=== PATIENT | male | born 1965 | race Caucasian/White ===

== ENCOUNTER 2018-03-04 11:55 | Emergency (ER) | payer BC ==
--- NOTE | 2018-03-04 13:02 | ER Document Report ---
HPI - HPI Patient complains to provider of: bat hit back of head Onset: Just prior to arrival Onset/Duration: Sudden Pain Level: 3 Context: 52 yo male hit in right back of head with bat during softball game prior to arrival. Has soreness to his head and some headache. His is concerned because they have to drive back to [place]. No nausea vomiting loss of consciousness dizziness or vertigo. No neck pain. Associated Symptoms: None - CONSTITUTIONAL Constitutional: DENIES: Fever, Chills Past Medical History - General Information source: Patient - Social History Smoking Status: Never Smoker Chew tobacco use (# tins/day): No Frequency of alcohol use: None Drug Abuse: None Lives with: Spouse/Significant other Family History: Reviewed & Not Pertinent Patient has suicidal ideation: No Patient has homicidal ideation: No - Medical History Medical History: Negative Renal/ Medical History: Denies: Hx Peritoneal Dialysis Surgical Hx: Negative Vertical Provider Document - CONSTITUTIONAL Agree With Documented VS: Yes Exam Limitations: No Limitations General Appearance: No Apparent Distress - INFECTION CONTROL TRAVEL OUTSIDE OF THE [place] IN LAST 30 DAYS: No - HEENT HEENT: Atraumatic, PERRLA Notes: No rhinorrhea, castro sign, or periorbital ecchymosis. EOMs intact - NECK Neck: Supple - Nontender C-spine - RESPIRATORY Respiratory: Breath Sounds Normal, No Respiratory Distress - CARDIOVASCULAR Cardiovascular: Regular Rate, Regular Rhythm - NEURO Level of Consciousness: Awake, Alert, Appropriate Motor/Sensory: No Motor Deficit, No Sensory Deficit Notes: Gait is stable. Course - Re-evaluation Re-evalutation: 03/04/18 14:[address] is negative I will treat with Tylenol. I did discuss the risks CT scan of the head because his exam was normal. But they were very concerned and wanted the CT scan. - Vital Signs Vital signs: Temp Pulse Resp BP Pulse Ox 98.8 F 70 20 150/97 H 95 03/04/18 12:11 03/04/18 12:11 03/04/18 12:11 03/04/18 12:11 03/04/18 12:11 Discharge - Discharge Clinical Impression: Right posterior occipital head injury Condition: Good Disposition: HOME, SELF-CARE Instructions: Contusion ([facility]), Headache ([facility]), Head Injury Precautions ([facility]) Additional Instructions: If you develop any worsening symptoms of headache, nausea, vomiting, dizziness, numbness or any concerns seek medical care before he arrived home to [place] Head injury precautions are for 24 hours after the original head injury See her primary care provider tomorrow for recheck Tylenol up to 4000 mg a day for discomfort Copy of CT scan given to you
--- NOTE | 2018-03-04 14:07 | RADIOLOGY REPORT (SQ) ---
EXAM DESCRIPTION: CT HEAD WITHOUT COMPLETED DATE/TIME: 03/04/2018 1:42 pm REASON FOR STUDY: post occiput injury COMPARISON: None. TECHNIQUE: Axial images acquired through the brain without intravenous contrast. Images reviewed wi th bone, brain and subdural windows. Additional sagittal and coronal reconstructions were generated. Images stored on PACS. All CT scanners at this facility use dose modulation, iterative reconstruction, and/or weight based d osing when appropriate to reduce radiation dose to as low as reasonably achievable (ALARA). [facility]: Dose Right [facility]: CareDose [facility]: Dose Right [facility]: Teradose 4D [facility]: [employer] RADIATION DOSE: CT Rad equipment meets quality standard of care and radiation dose reduction techniq ues were employed. CTDIvol: 53.2 mGy. DLP: 1070 mGy-cm. mGy. LIMITATIONS: None. FINDINGS: VENTRICLES: Normal size and contour. CEREBRUM: No masses. No hemorrhage. No midline shift. No evidence for acute infarction. Normal gra y/white matter differentiation. No areas of low density in the white matter. CEREBELLUM: No masses. No hemorrhage. No alteration of density. No evidence for acute infarction. EXTRAAXIAL SPACES: No fluid collections. No masses. ORBITS AND GLOBE: No intra- or extraconal masses. Normal contour of globe without masses. CALVARIUM: No fracture. PARANASAL SINUSES: No fluid or mucosal thickening. SOFT TISSUES: No mass or hematoma. OTHER: No other significant finding. IMPRESSION: NORMAL BRAIN CT WITHOUT CONTRAST. EVIDENCE OF ACUTE STROKE: NO. COMMENT: Quality ID # [id number]: Final reports with documentation of one or more dose reduction techniques (e.g., Automated exposure control, adjustment of the mA and/or kV according to patient size, use of iterative reconstruction technique) TECHNICAL DOCUMENTATION: JOB ID: [id number] [employer]- All Rights Reserved Reading location - IP/workstation name: [email or web address]
[2018-03-04] MEDS ORDERED: ACETAMINOPHEN 325 MG TABLET PO ONE (14:11)
[2018-03-04 14:31] VITALS: BP 142/90
== END 2018-03-04 14:29 | disposition home or self-care (01) ==
LOC: ER 11:55
DX: S09.90XA Unspecified injury of head, initial encounter (principal); R51 Headache; W21.11XA Struck by baseball bat, initial encounter; Y93.64 Activity, baseball
CPT/HCPCS: 70450; 99283